=== PATIENT | male | born 1980 | race African-American/Black ===

== ENCOUNTER 2018-01-04 21:19 | Inpatient (IN) | payer OTHER ==
[~2018-01-04] VITALS: Ht 162.6 cm; Wt 77.2 kg
[2018-01-04 22:11] LABS: BASOPHILS % (AUTO) 0.3 % (0.0-2.0); EOSINOPHILS % (AUTO) 0.9 % (1.0-6.0); HEMATOCRIT 43.3 % (41-53); HEMOGLOBIN 14.4 g/dL (13.5-17.5); LYMPHOCYTES # (AUTO) 2.3 K/uL (1.0-4.8); LYMPHOCYTES % (AUTO) 14.1 % (22.0-44.0); MEAN CORPUSCULAR HEMOGLOBIN 29.3 pg (26.0-34.0); MEAN CORPUSCULAR HGB CONC 33.2 G/dL (31.0-37.0); MEAN CORPUSCULAR VOLUME 88 fL (80-100); MONOCYTES # (AUTO) 1.1 K/uL (0.1-1.0); MONOCYTES % (AUTO) 6.9 % (2.0-9.0); NEUTROPHILS # (AUTO) 12.8 K/uL (1.8-7.7); NEUTROPHILS % (AUTO) 77.8 % (40.0-70.0); PLATELET COUNT (AUTO) 351 K/uL (150-450); RED BLOOD CELL COUNT(AUTO) 4.92 MIL/uL (4.50-5.90); RED CELL DISTRIBUTION WIDTH 13.9 % (11.5-14.5)
[2018-01-04 22:21] LABS: ANION GAP 13 mmol/L (8-16); CALCIUM, TOTAL 8.4 mg/dL (8.8-10.5); CARBON DIOXIDE 23 mmol/L (22-29); CHLORIDE 102 mmol/L (98-107); CREATININE 1.21 mg/dL (0.60-1.30); GLOMERULAR FILTR. RATE CALC > 60 mL/min (>60); GLUCOSE,RANDOM 98 mg/dL (70-110); POTASSIUM 3.7 mmol/L (3.5-5.1); SODIUM SERUM 138 mmol/L (136-145); UREA NITROGEN, BLOOD 12 mg/dL (7-18)
[2018-01-04 22:27] LABS: ALANINE AMINOTRANSFERASE 48 U/L (12-78); ALBUMIN 3.9 g/dL (3.4-5.0); ALKALINE PHOSPHATASE 117 U/L (46-116); ASPARTATE AMINOTRANSFERASE 30 U/L (15-37); BILIRUBIN,TOTAL 0.4 mg/dL (0.1-1.0); TOTAL PROTEIN, SERUM 7.8 g/dL (6.4-8.2)
[2018-01-04 22:28] LABS: ACETAMINOPHEN < 2 mcg/mL (10-30)
[2018-01-04 22:52] LABS: SALICYLATE 3.7 mg/dL (2.8-20.0)
[2018-01-04 23:14] LABS: CREATINE KINASE MB 1.3 ng/mL (0-5); CREATINE KINASE, TOTAL 335 U/L (39-308)
[2018-01-05 02:10] LABS: AMPHET/METH SCREEN,URINE POSITIVE (NEGATIVE); BARBITURATE SCREEN, URINE NEGATIVE (NEGATIVE); BENZODIAZEPINES SCREEN,URINE NEGATIVE (NEGATIVE); CANNABINOID SCREEN,URINE POSITIVE (NEGATIVE); COCAINE SCREEN,URINE NEGATIVE (NEGATIVE); METHADONE SCREEN, URINE NEGATIVE (NEGATIVE); OPIATE SCREEN,URINE NEGATIVE (NEGATIVE)
[2018-01-05 02:13] LABS: PHENCYCLIDINE SCREEN,URINE NEGATIVE (NEGATIVE)
[2018-01-05] MEDS ORDERED: LORazepam 2 MG/ML VIAL IM ONE (02:15)
[2018-01-05] MEDS ORDERED: MAG HYDROX/AL HYDROX/SIMETH ES 30 ML SUSPENSION UDCUP PO PRN ×2 (03:00→16:45)
[2018-01-05] MEDS ORDERED: MAGNESIUM HYDROXIDE SUSPENSION 30 ML UDCUP PO PRN ×2 (03:00→16:45)
[2018-01-05] MEDS ORDERED: ACETAMINOPHEN 325 MG TABLET PO PRN ×2 (03:00→16:45)
[2018-01-05] MEDS ORDERED: LORazepam 2 MG/ML VIAL IVP ONE ×2 (04:15→10:30)
[2018-01-05] MEDS ORDERED: METOPROLOL TARTRATE 50 MG TABLET PO ONE (04:15)
[2018-01-05] MEDS ORDERED: LABETALOL HCL 5 MG/ML 20 ML VIAL IVP ONE ×2 (04:15→05:15)
[2018-01-05] MEDS ORDERED: CloNIDine HCL 0.1 MG TABLET PO ONE (12:15)
[2018-01-05] MEDS ORDERED: IBUPROFEN 400 MG TABLET PO PRN (16:45)
[2018-01-05] MEDS ORDERED: PETROLATUM,WHITE 71 GM JELLY TP PRN (16:45)
[2018-01-05] MEDS ORDERED: DOCUSATE SODIUM 100 MG CAPSULE PO PRN (16:45)
[2018-01-05] MEDS ORDERED: ALBUTEROL SULFATE HFA 90 MCG/PUFF 8 GM INHALER IH PRN (16:45)
[2018-01-05] MEDS ORDERED: ONDANSETRON HCL 4 MG TABLET PO PRN (16:45)
[2018-01-05] MEDS: LORazepam 2 MG TABLET PO PRN (19:05)
[2018-01-05] MEDS: HALOPERIDOL 5 MG TABLET PO PRN (19:05)
[2018-01-05 19:30] VITALS: BP 176/118
[2018-01-05] MEDS ORDERED: AmLODIPine BESYLATE 10 MG TABLET PO ONE (20:30)
[2018-01-05] MEDS ORDERED: CloNIDine HCL 0.1 MG TABLET PO PRN (20:30)
[2018-01-05 21:35] VITALS: BP 138/80
[2018-01-06 06:19] LABS: CHOL/HDL RATIO 2.5 (4.2-7.3); THYROID STIMULATING HORMONE 2.61 uIU/mL (0.36-3.74)
[2018-01-06 06:31] VITALS: BP 132/97
[2018-01-06] MEDS: HALOPERIDOL 5 MG TABLET PO PRN (10:11)
[2018-01-06] MEDS: AmLODIPine BESYLATE 10 MG TABLET PO SCH (10:12)
[2018-01-06] MEDS: NICOTINE 14 MG/24 HOUR PATCH TD SCH (10:12)
[2018-01-06] MEDS: LORazepam 2 MG TABLET PO PRN (10:12)
[2018-01-07] MEDS: AmLODIPine BESYLATE 10 MG TABLET PO SCH (08:46)
[2018-01-07] MEDS: NICOTINE 14 MG/24 HOUR PATCH TD SCH (08:46)
[2018-01-07 08:58] VITALS: BP 108/68
[2018-01-07] MEDS: GABAPENTIN 300 MG CAPSULE PO SCH ×2 (11:45→17:46)
[2018-01-07] MEDS: BuPROPion HCL 100 MG SR TABLET PO SCH (11:45)
[2018-01-07 17:53] VITALS: BP 135/86
[2018-01-07 19:35] LABS: APPEARANCE,URINE CLEAR (CLEAR); BILIRUBIN,URINE NEGATIVE (NEGATIVE); GLUCOSE, URINE (UA) NEGATIVE (NEGATIVE); KETONES,URINE NEGATIVE (NEGATIVE); LEUKOCYTE ESTERASE ,URINE NEGATIVE (NEGATIVE); NITRATE,URINE NEGATIVE (NEGATIVE); OCCULT BLOOD,URINE NEGATIVE (NEGATIVE); PH,URINE 5.5 (5.0-8.0); PROTEIN,URINE NEGATIVE (NEGATIVE); UROBILINOGEN,URINE 0.2 mg/dL (<=1.0)
[2018-01-07 19:38] LABS: AMPHET/METH SCREEN,URINE NEGATIVE (NEGATIVE); BARBITURATE SCREEN, URINE NEGATIVE (NEGATIVE); BENZODIAZEPINES SCREEN,URINE NEGATIVE (NEGATIVE); CANNABINOID SCREEN,URINE POSITIVE (NEGATIVE); COCAINE SCREEN,URINE NEGATIVE (NEGATIVE); METHADONE SCREEN, URINE NEGATIVE (NEGATIVE); OPIATE SCREEN,URINE NEGATIVE (NEGATIVE)
[2018-01-07 19:40] LABS: PHENCYCLIDINE SCREEN,URINE NEGATIVE (NEGATIVE)
[2018-01-08] MEDS: AmLODIPine BESYLATE 10 MG TABLET PO SCH (08:25)
[2018-01-08] MEDS: GABAPENTIN 300 MG CAPSULE PO SCH ×3 (08:25→16:16)
[2018-01-08] MEDS: BuPROPion HCL 100 MG SR TABLET PO SCH ×2 (08:25→12:13)
[2018-01-08 08:58] VITALS: BP 127/62
[2018-01-08] MEDS: NICOTINE 14 MG/24 HOUR PATCH TD SCH (09:00)
[2018-01-08 12:47] VITALS: BP_SYST 127; BP_SYST 85; BP_DIAS 87
[2018-01-08 17:20] VITALS: BP 141/96
[2018-01-08] MEDS: ZOLPIDEM TARTRATE 10 MG TABLET PO PRN (22:35)
[2018-01-09 08:14] VITALS: BP 150/98
[2018-01-09] MEDS: BuPROPion HCL 100 MG SR TABLET PO SCH ×2 (09:33→13:27)
[2018-01-09] MEDS: AmLODIPine BESYLATE 10 MG TABLET PO SCH (09:34)
[2018-01-09] MEDS: NICOTINE 14 MG/24 HOUR PATCH TD SCH (09:34)
[2018-01-09] MEDS: GABAPENTIN 300 MG CAPSULE PO SCH ×3 (09:34→17:14)
[2018-01-09] MEDS: LORazepam 2 MG TABLET PO PRN (09:35)
[2018-01-09 16:17] VITALS: BP 142/77
[2018-01-09] MEDS: ZOLPIDEM TARTRATE 10 MG TABLET PO PRN (21:02)
[2018-01-10] MEDS: AmLODIPine BESYLATE 10 MG TABLET PO SCH (08:36)
[2018-01-10] MEDS: BuPROPion HCL 100 MG SR TABLET PO SCH ×2 (08:36→11:41)
[2018-01-10] MEDS: GABAPENTIN 300 MG CAPSULE PO SCH ×3 (08:36→16:07)
[2018-01-10] MEDS: NICOTINE 14 MG/24 HOUR PATCH TD SCH (08:37)
[2018-01-10 12:33] VITALS: BP 140/72
[2018-01-10 16:10] VITALS: BP 141/85
[2018-01-10] MEDS: ZOLPIDEM TARTRATE 10 MG TABLET PO PRN (22:40)
[2018-01-11 06:05] VITALS: BP 132/82
[2018-01-11] MEDS: NICOTINE 14 MG/24 HOUR PATCH TD SCH (08:25)
[2018-01-11] MEDS: BuPROPion HCL 100 MG SR TABLET PO SCH ×2 (08:25→12:30)
[2018-01-11] MEDS: GABAPENTIN 300 MG CAPSULE PO SCH ×3 (08:25→16:33)
[2018-01-11] MEDS: AmLODIPine BESYLATE 10 MG TABLET PO SCH (08:25)
[2018-01-11 08:36] VITALS: BP 142/74
[2018-01-11] MEDS ORDERED: BUPR100SR PO (14:33)
[2018-01-11] MEDS ORDERED: MIRT15 PO (14:33)
[2018-01-11] MEDS ORDERED: GABA-531 PO (14:34)
[2018-01-11] MEDS ORDERED: AMLO-512 PO (14:36)
[2018-01-11 16:35] VITALS: BP 152/98
[2018-01-11] MEDS ORDERED: MIRTAZAPINE 15 MG TABLET PO SCH (21:00)
[2018-01-11] MEDS: ZOLPIDEM TARTRATE 10 MG TABLET PO PRN (22:33)
[2018-01-12] MEDS: NICOTINE 14 MG/24 HOUR PATCH TD SCH (08:11)
[2018-01-12] MEDS: GABAPENTIN 300 MG CAPSULE PO SCH ×2 (08:11→13:49)
[2018-01-12] MEDS: BuPROPion HCL 100 MG SR TABLET PO SCH ×2 (08:11→12:36)
[2018-01-12] MEDS: AmLODIPine BESYLATE 10 MG TABLET PO SCH (08:11)
[2018-01-12 08:20] VITALS: BP 151/55
== END 2018-01-12 15:00 | disposition home or self-care (01) | DRG 885 ==
LOC: EMS 21:20 → B3A 01-05 11:16 → 3EC 01-05 17:48
PROVIDERS: ADMIT Psychiatry & Neurology Psychiatry; ATTEND Psychiatry & Neurology Psychiatry
DX: F33.3 Major depressive disorder, recurrent, severe with psychotic symptoms (principal); R45.851 Suicidal ideations; F17.210 Nicotine dependence, cigarettes, uncomplicated; Z59.0 Homelessness; F41.9 Anxiety disorder, unspecified; F10.129 Alcohol abuse with intoxication, unspecified; R00.0 Tachycardia, unspecified; Y90.9 Presence of alcohol in blood, level not specified; T50.902A Poisoning by unspecified drugs, medicaments and biological substances, intentional self-harm, initial encounter; F43.10 Post-traumatic stress disorder, unspecified; I10 Essential (primary) hypertension; F19.10 Other psychoactive substance abuse, uncomplicated; Z71.6 Tobacco abuse counseling; Z71.51 Drug abuse counseling and surveillance of drug abuser; D72.829 Elevated white blood cell count, unspecified; Z91.19 Patient's noncompliance with other medical treatment and regimen; Z91.5 Personal history of self-harm; Y92.89 Other specified places as the place of occurrence of the external cause
CPT/HCPCS: 80307; 84443; 93005; 96372; 96374; 96375; 96376; 99285; G0480; G0481; J2060; J3490